=== PATIENT | male | born 1970 | race Caucasian/White ===

== ENCOUNTER 2020-03-03 22:11 | Emergency (ER) | payer MEDICAID ==
[~2020-03-03] VITALS: Ht 175.3 cm; Wt 88.6 kg
[2020-03-03] MEDS ORDERED: ketorolac trometh. 30mg/ml inj. IV ONE (22:25)
[2020-03-03] MEDS ORDERED: normal saline 1000ML IV soln IV ONE (22:25)
[2020-03-03] MEDS ORDERED: clindamycin 600mg/D5W 50ml 50 ML IV ONE (22:25)
[2020-03-03 23:04] LABS: BASOPHILS # (AUTO) 0.2 X10'3 (0-0.2); EOSINOPHILS # (AUTO) 0.2 X10'3 (0-0.9); EOSINOPHILS % (AUTO) 1.2 % (0-6); HEMATOCRIT 47.4 % (42.0-52.0); HEMOGLOBIN 16.4 g/dl (14.0-17.9); LYMPHOCYTES # (AUTO) 2.7 X10'3 (1.1-4.8); LYMPHOCYTES % (AUTO) 17.3 % (21-51); MEAN CORPUSCULAR HEMOGLOBIN 31.4 PG (27.0-31.0); MEAN CORPUSCULAR HGB CONC 34.6 g/dL (33.0-36.5); MEAN CORPUSCULAR VOLUME 90.7 FL (78-98); MEAN PLATELET VOLUME 8.5 FL (7.4-10.4); MONOCYTES # (AUTO) 1.2 X10'3 (0-0.9); MONOCYTES % (AUTO) 7.4 % (2-12); NEUTROPHILS # (AUTO) 11.5 X10'3 (1.8-7.7); NEUTROPHILS % (AUTO) 73.1 % (42-75); PLATELET COUNT 268 X10'3 (140-440); RED BLOOD COUNT 5.23 X10'6 (4.70-6.10); RED CELL DISTRIBUTION WIDTH 13.3 % (11.5-14.5); WHITE BLOOD COUNT 15.8 X10'3 (4.5-11.0)
[2020-03-03 23:12] LABS: ALANINE AMINOTRANSFERASE 31 U/L (12-78); ALBUMIN 3.7 G/DL (3.4-5.0); ALBUMIN/GLOBULIN RATIO 0.9 (1.1-1.5); ALKALINE PHOSPHATASE 123 IU/L (46-116); ANION GAP 10 (8-16); ASPARTATE AMINO TRANSFERASE 12 U/L (10-37); BILIRUBIN,TOTAL 0.6 MG/DL (0.1-1.0); BLOOD UREA NITROGEN 9 MG/DL (7-18); BUN/CREATININE RATIO 9.8 (5.4-32.0); CALCIUM 8.7 MG/DL (8.5-10.1); CHLORIDE 97 MMOL/L (99-107); CREATININE 0.92 MG/DL (0.60-1.10); MAGNESIUM 1.8 MG/DL (1.5-2.4); POTASSIUM 3.8 MMOL/L (3.5-5.1); SODIUM 131 MMOL/L (135-145); TOTAL CARBON DIOXIDE 24.1 MMOL/L (24-32); eGFR 88 ML/MIN
[2020-03-03 23:16] LABS: GLUCOSE 500 MG/DL (70-104)
[2020-03-03 23:20] LABS: CLARITY,URINE CLEAR (Clear); COLOR,URINE YELLOW (Yellow); GLUCOSE, URINE >=1000 mg/dl (Neg); KETONES,URINE TRACE mg/dl (Neg); LEUKOCYTE ESTERASE ,URINE NEGATIVE (Neg); NITRITES, URINE NEGATIVE (Neg); OCCULT BLOOD,URINE TRACE-INTACT (Neg); PROTEIN,URINE 30 mg/dl (Neg); UROBILINOGEN,URINE 0.2 E.U/dL (0.2-1.0)
[2020-03-03] MEDS ORDERED: insulin regular, human 10 units/0.1 ml syringe IV ONE (23:25)
[2020-03-03 23:27] LABS: URINE AMPHETAMINE SCREEN NEGATIVE (Neg); URINE BARBITUATE SCREEN NEGATIVE (Neg); URINE BENZODIAZEPINES SCREEN NEGATIVE (Neg); URINE CANNABINOID SCREEN NEGATIVE (Neg); URINE COCAINE SCREEN NEGATIVE (Neg); URINE METHADONE SCREEN NEGATIVE (Neg); URINE OPIATE SCREEN NEGATIVE (Neg); URINE PHENCYCLIDINE SCREEN NEGATIVE (Neg)
[2020-03-03 23:29] LABS: UA COLLECTION TYPE URINAL
[2020-03-03 23:30] LABS: BACTERIA,URINE NONE SEEN /HPF (Neg); RBC,URINE 0-2 /HPF (0-2); SQUAMOUS EPITHELIAL CELL,UR FEW /LPF (FEW); WBC,URINE NONE SEEN /HPF (0-4)
[2020-03-03] MEDS ORDERED: normal saline 1000ML IV soln IVB ONE (23:45)
[2020-03-03] MEDS ORDERED: METF500T PO (23:48)
[2020-03-03] MEDS ORDERED: ONDA4TAB6 PO (23:48)
[2020-03-03] MEDS ORDERED: CLIN150C8 PO (23:48)
[2020-03-04 00:17] VITALS: BP 161/95
--- NOTE | 2020-03-04 00:20 | NUR ---
[facility] [phone]
== END 2020-03-04 00:21 | disposition home or self-care (01) ==
LOC: ER 22:11
DX: L02.01 Cutaneous abscess of face (principal); U07.1 COVID-19; L03.811 Cellulitis of head [any part, except face]; E11.65 Type 2 diabetes mellitus with hyperglycemia; Z79.899 Other long term (current) drug therapy
CPT/HCPCS: 10060; 36415; 71045; 80053; 80305; 81001; 82948; 83605; 83735; 84145; 85025; 87040; 87186; 87635; 96365; 96375; 99284; J1815; J1885; J7030; 12001; 96372; J3490

== ENCOUNTER 2023-12-14 20:56 | Emergency (ER) | payer MEDICAID ==
[~2023-12-14] VITALS: Ht 175.3 cm; Wt 77.6 kg
[~2023-12-14 20:56] MED LIST: CLIN-214 PO; ONDA4TAB6 PO
[2023-12-14] MEDS ORDERED: SULF1TAB49 PO (21:48)
[2023-12-14 22:11] VITALS: BP 170/89; PULSE 89; RESP 18; TEMP 98.6; O2SAT 96
== END 2023-12-14 22:12 | disposition home or self-care (01) ==
LOC: ER 20:57
DX: L02.811 Cutaneous abscess of head [any part, except face] (principal); Z88.0 Allergy status to penicillin; Z79.2 Long term (current) use of antibiotics
CPT/HCPCS: 99283